=== PATIENT | female | born 1975 | race Caucasian/White ===

== ENCOUNTER 2017-07-03 17:59 | Emergency (ER) | payer MEDICAID ==
[~2017-07-03] VITALS: Ht 157.5 cm; Wt 75.0 kg
[2017-07-03] MEDS ORDERED: SODIUM CHLORIDE 0.9% 1,000 ML IV ONE (18:33)
[2017-07-03 19:25] LABS: BASOPHILS % 0.4 % (0.0-2.0); EOSINOPHILS % 3.1 % (0.0-5.0); HEMATOCRIT. 33.8 % (36.0-48.0); HEMOGLOBIN. 11.6 g/dL (12.0-16.0); LYMPHOCYTES % 17.1 % (20.0-50.0); MEAN CORPUSCULAR VOLUME 87.5 fL (81.0-99.0); MEAN PLATELET VOLUME 7.6 fl (7.4-10.4); MONOCYTES % 5.5 % (2.0-8.0); NEUTROPHILS % 73.9 % (40.0-76.0); PLATELET 342 x1000/uL (130-400); RED BLOOD CELL COUNT 3.86 mill/uL (4.2-5.4); RED CELL DISTRIBUTION WIDTH 14.6 % (11.6-14.6)
[2017-07-03 19:31] LABS: CHLORIDE 107 mEq/L (98-107)
[2017-07-03 19:32] LABS: CLARITY URINE CLOUDY (CLEAR); COLOR URINE YELLOW (YELLOW); KETONES URINE NEGATIVE (NEGATIVE); LEUKOCYTE ESTERASE URINE TRACE (NEGATIVE); NITRITE URINE POSITIVE (NEGATIVE); OCCULT BLOOD URINE TRACE (NEGATIVE); PROTEIN URINE NEGATIVE (NEGATIVE); SPECIFIC GRAVITY URINE 1.012 (1.005-1.030)
[2017-07-03 19:35] LABS: ETHANOL BLOOD < 10 mg/dL
[2017-07-03 19:55] LABS: B-HCG QUANTITATIVE 34038 mIU/mL (<3)
[2017-07-03] MEDS ORDERED: NITROFURANTOIN 100MG M/M CAPSULE PO NR (20:00)
[2017-07-03 20:07] LABS: *AMPHETAMINES SCREEN URINE NEGATIVE (NEGATIVE); *BARBITURATES SCREEN URINE NEGATIVE (NEGATIVE); *BENZODIAZEPINES SCREEN URINE NEGATIVE (NEGATIVE); *COCAINE SCREEN URINE NEGATIVE (NEGATIVE); METHADONE URINE SCREEN NEGATIVE (NEGATIVE)
[2017-07-03 20:08] LABS: CANNABINOID URINE SCREEN NEGATIVE (NEGATIVE); OPIATES URINE SCREEN NEGATIVE (NEGATIVE); PHENCYCLIDINE URINE SCREEN NEGATIVE (NEGATIVE)
[2017-07-03] MEDS ORDERED: LEVETIRACETAM 500MG TABLET PO ONE (20:45)
[2017-07-03 22:29] VITALS: BP 128/94
== END 2017-07-03 22:29 | disposition home or self-care (01) ==
LOC: EDBD 18:42 → ER 18:42
DX: O99.352 Diseases of the nervous system complicating pregnancy, second trimester (principal); G40.909 Epilepsy, unspecified, not intractable, without status epilepticus; O99.012 Anemia complicating pregnancy, second trimester; O23.42 Unspecified infection of urinary tract in pregnancy, second trimester; Z87.891 Personal history of nicotine dependence; Z3A.18 18 weeks gestation of pregnancy; Z98.890 Other specified postprocedural states
CPT/HCPCS: 36415; 76805; 80053; 80305; 81003; 81025; 84702; 85025; 96360; 96361; 99285; G0482; J7030

== ENCOUNTER 2017-07-29 19:37 | Emergency (ER) | payer MEDICAID ==
[~2017-07-29] VITALS: Ht 157.5 cm; Wt 73.0 kg
[~2017-07-29 19:37] MED LIST: FOLI-43 PO; KEPP500 PO; PNV1TABL76 PO
[2017-07-29 21:08] LABS: CLARITY URINE CLOUDY (CLEAR); COLOR URINE YELLOW (YELLOW); KETONES URINE TRACE (NEGATIVE); LEUKOCYTE ESTERASE URINE NEGATIVE (NEGATIVE); NITRITE URINE NEGATIVE (NEGATIVE); OCCULT BLOOD URINE NEGATIVE (NEGATIVE); PROTEIN URINE NEGATIVE (NEGATIVE); SPECIFIC GRAVITY URINE 1.016 (1.005-1.030); UROBILINOGEN URINE 0.2 E.U./dL (0.2-1.0)
[2017-07-30] MEDS ORDERED: ACETAMINOPHEN 500MG TABLET PO ONE (00:30)
[2017-07-30] MEDS ORDERED: ONDANSETRON 4MG ODT PO ONE (00:30)
[2017-07-30 01:00] LABS: BASOPHILS % 0.5 % (0.0-2.0); EOSINOPHILS % 1.9 % (0.0-5.0); HEMATOCRIT. 31.1 % (36.0-48.0); HEMOGLOBIN. 10.6 g/dL (12.0-16.0); LYMPHOCYTES % 19.8 % (20.0-50.0); MEAN CORPUSCULAR HEMOGLOBIN 30.3 pg (28.0-32.0); MEAN CORPUSCULAR VOLUME 88.4 fL (81.0-99.0); MONOCYTES % 8.1 % (2.0-8.0); NEUTROPHILS % 69.7 % (40.0-76.0); PLATELET 378 x1000/uL (130-400); RED BLOOD CELL COUNT 3.51 mill/uL (4.2-5.4); RED CELL DISTRIBUTION WIDTH 14.2 % (11.6-14.6)
[2017-07-30 01:07] LABS: CHLORIDE 105 mEq/L (98-107)
[2017-07-30 01:10] LABS: PROTHROMBIN TIME 10.4 sec (9.4-11.6)
[2017-07-30 01:32] LABS: B-HCG QUANTITATIVE 32502 mIU/mL (<3)
[2017-07-30 03:13] VITALS: BP 101/61
== END 2017-07-30 04:09 | disposition home or self-care (01) ==
LOC: ER 19:37
DX: O26.892 Other specified pregnancy related conditions, second trimester (principal); O09.512 Supervision of elderly primigravida, second trimester; Z3A.21 21 weeks gestation of pregnancy
CPT/HCPCS: 36415; 76815; 80053; 81003; 81025; 83690; 84702; 85025; 85610; 99285; Q0162; Z7610

== ENCOUNTER 2019-12-20 13:17 | Emergency (ER) | payer MEDICAID ==
[~2019-12-20] VITALS: Ht 165.1 cm; Wt 80.0 kg
[~2019-12-20 13:17] MED LIST changes: -FOLI-43 PO; +IBUP-2030 PO; +LISI10TA5 PO; -PNV1TABL76 PO
[2019-12-20 14:10] VITALS: BP 126/88
== END 2019-12-20 19:26 | disposition home or self-care (01) ==
LOC: ER 13:43
DX: G40.909 Epilepsy, unspecified, not intractable, without status epilepticus (principal); R32 Unspecified urinary incontinence; R03.0 Elevated blood-pressure reading, without diagnosis of hypertension; R45.1 Restlessness and agitation
CPT/HCPCS: 99283